=== PATIENT | male | born 1955 | race Caucasian/White ===

== ENCOUNTER 2021-04-27 09:29 | Outpatient (CLI) | payer MEDICARE, MEDICAID ==
[~2021-04-27 09:29] MED LIST: LISI20TA28 PO; PRED50TA PO
== END 2021-04-27 23:59 | disposition home or self-care (01) ==
LOC: CARD DIAG 09:29
PROVIDERS: ATTEND Nurse Practitioner
DX: I08.8 Other rheumatic multiple valve diseases (principal); I10 Essential (primary) hypertension
CPT/HCPCS: 93306